=== PATIENT | male | born 1940 | race Caucasian/White ===

== ENCOUNTER → 2022-06-24 12:32 | Outpatient (BNVA) | payer MEDICARE, SELFPAY | PROVIDERS: Visit Provider Nurse Practitioner Family | DX: M25.562 Pain in left knee (principal) | CPT/HCPCS: 73562 ==

== ENCOUNTER → 2022-06-27 10:30 | Outpatient (BNVA) | payer MEDICARE, SELFPAY | PROVIDERS: Visit Provider Nurse Practitioner Family | DX: M79.669 Pain in unspecified lower leg (principal) | CPT/HCPCS: 73590 ==